=== PATIENT | female | born 1935 | race African-American/Black ===

== ENCOUNTER 2019-05-02 13:58 | Emergency (ER) | payer MEDICARE ==
[~2019-05-02] VITALS: Ht 162.6 cm; Wt 68.0 kg
[2019-05-02 15:43] VITALS: BP 161/84
== END 2019-05-02 15:43 | disposition home or self-care (01) ==
LOC: ER 13:58
DX: M79.602 Pain in left arm (principal); I10 Essential (primary) hypertension; V49.49XA Driver injured in collision with other motor vehicles in traffic accident, initial encounter; Y93.89 Activity, other specified; Y92.410 Unspecified street and highway as the place of occurrence of the external cause
CPT/HCPCS: 99283